=== PATIENT | female | born 1940 | race Caucasian/White ===

== ENCOUNTER 2018-02-18 03:24 | Inpatient (IN) | payer MEDICARE, OTHER ==
[2018-02-18 04:08] LABS: ADD MAN DIFF? NO
[2018-02-18 04:17] LABS: BASOPHIL # 0.1 10^3/ul (0.0-0.1); BASOPHILS % 0.3 % (0.0-2.0); EOSINOPHILS # 0.5 10^3/ul (0.0-0.5); EOSINOPHILS % 2.7 % (0.0-7.0); HEMATOCRIT 38.3 % (37.0-47.0); LYMPHOCYTES # 0.7 10^3/ul (0.8-2.9); LYMPHOCYTES % 3.8 % (15.0-51.0); MEAN CORPUSCULAR HEMOGLOBIN 31.4 pg (29.0-33.0); MEAN CORPUSCULAR HGB CONC 33.9 g/dl (32.0-37.0); MEAN CORPUSCULAR VOLUME 92.5 fl (82.0-101.0); MEAN PLATELET VOLUME 9.5 fl (7.4-10.4); MONOCYTE # 1.3 10^3/ul (0.3-0.9); MONOCYTES % 6.6 % (0.0-11.0); NEUTROPHIL # 16.7 10^3/ul (1.6-7.5); NEUTROPHILS % 85.7 % (39.0-77.0); PLATELET COUNT 250 10^3/UL (140-415); RED BLOOD COUNT 4.14 10^6/ul (4.20-5.40); RED CELL DISTRIBUTION WIDTH 11.6 % (11.5-14.5)
[2018-02-18 04:17] LABS: WHITE BLOOD COUNT 19.5 10^3/ul (4.8-10.8)
[2018-02-18 04:31] LABS: ALANINE AMINOTRANSFERASE 39 IU/L (13-69); ALBUMIN 3.9 g/dl (3.3-4.9); ALBUMIN/GLOBULIN RATIO 1.62; ALKALINE PHOSPHATASE 104 IU/L (42-121); ANION GAP 12 (8-16); ASPARTATE AMINO TRANSFERASE 44 IU/L (15-46); BILIRUBIN,INDIRECT 0.5 mg/dl (0-1.1); BILIRUBIN,TOTAL 0.5 mg/dl (0.2-1.3); BLOOD UREA NITROGEN 18 mg/dl (7-20); CALCIUM 9.2 mg/dl (8.4-10.2); CARBON DIOXIDE 30 mmol/L (21-31); CHLORIDE 103 mmol/L (97-110); CREATININE 0.92 mg/dl (0.44-1.00); GLUCOSE 123 mg/dl (70-220); POTASSIUM 3.7 mmol/L (3.5-5.1); SODIUM 141 mmol/L (135-144); TOTAL PROTEIN 6.3 g/dl (6.1-8.1)
[2018-02-18 04:33] LABS: URINE PH (Dip) POC 7.5 (5.0-8.5)
[2018-02-18 04:33] LABS: URINE BLOOD (Dip) POC Trace-intact (NEGATIVE); URINE GLUCOSE (Dip) POC Negative (NEGATIVE); URINE KETONES (Dip) POC Trace (NEGATIVE); URINE LEUKOCYTE EST (Dip) POC Negative (NEGATIVE); URINE NITRITE (Dip) POC Negative (NEGATIVE); URINE TOTAL PROTEIN POC Trace (NEGATIVE)
[2018-02-18 04:41] LABS: INR 0.91; PROTIME 12.3 Sec (11.9-14.9)
[2018-02-18 04:42] LABS: PARTIAL THROMBOPLASTIN TIME 44.1 Sec (25.0-35.0); TROPONIN-I 0.017 ng/ml (0.000-0.120)
[2018-02-18 04:44] LABS: ADD UMIC NO; UR ASCORBIC ACID NEGATIVE (NEGATIVE); UR BILIRUBIN (Dip) NEGATIVE (NEGATIVE); UR BLOOD (Dip) NEGATIVE (NEGATIVE); UR CLARITY CLEAR (CLEAR); UR COLOR YELLOW (YELLOW); UR GLUCOSE (Dip) NEGATIVE (NEGATIVE); UR KETONES (Dip) TRACE mg/dL (NEGATIVE); UR LEUKOCYTE ESTERASE (Dip) NEGATIVE Leu/ul (NEGATIVE); UR NITRITE (Dip) NEGATIVE (NEGATIVE); UR SPECIFIC GRAVITY (Dip) 1.014 (1.003-1.030); UR TOTAL PROTEIN (Dip) NEGATIVE (NEGATIVE); UR UROBILINOGEN (Dip) NEGATIVE (NEGATIVE)
[2018-02-18] MEDS: ACETAMINOPHEN 650 MG SUPP PR (05:08)
[2018-02-18 05:09] LABS: VALPROATE 49 ug/ml (50-100)
[2018-02-18] MEDS ORDERED: ACETAMINOPHEN 650 MG SUPP PR (05:30)
[2018-02-18] MEDS: LABETALOL HCL 20MG INJ IV (05:44)
[2018-02-18] MEDS: PANTOPRAZOLE 40 MG INJ IV (05:48)
[2018-02-18] MEDS: PIPER-TAZO 3.375 GM IV (PMX) 100 ML IVPB (05:48)
[2018-02-18 05:56] LABS: LACTIC ACID 0.9 mmol/L (0.5-2.0)
[2018-02-18] MEDS ORDERED: niCARdipine 25 MG in SOD CHLORIDE 0.9% 240 ML IV (06:00)
[2018-02-18] MEDS: SOD CHLORIDE 0.9% 1,000 ML IV ×3 (06:26→22:35)
[2018-02-18 07:05] LABS: ANION GAP 12 (8-16); BLOOD UREA NITROGEN 17 mg/dl (7-20); CALCIUM 8.9 mg/dl (8.4-10.2); CARBON DIOXIDE 29 mmol/L (21-31); CHLORIDE 104 mmol/L (97-110); CREATININE 0.85 mg/dl (0.44-1.00); GLUCOSE 123 mg/dl (70-220); POTASSIUM 3.6 mmol/L (3.5-5.1); SODIUM 141 mmol/L (135-144)
[2018-02-18 07:14] LABS: HEMOGLOBIN A1C 5.4 % (0-5.9)
[2018-02-18 08:01] LABS: LACTIC ACID 1.2 mmol/L (0.5-2.0)
[2018-02-18] MEDS: DOCUSATE SODIUM 100 MG CAP PO ×2 (08:35→21:21)
[2018-02-18] MEDS: ACETAMINOPHEN 650MG/20.3ML CUP PO (11:56)
[2018-02-18] MEDS ORDERED: DENOSUMAB 60 MG SQ (12:00)
[2018-02-18 13:02] LABS: CREATINE KINASE 173 IU/L (23-200)
[2018-02-18 13:12] LABS: CK INDEX 0.8; CK-MB 1.47 ng/ml (0.0-2.4); TROPONIN-I 0.015 ng/ml (0.000-0.120)
[2018-02-18 13:32] LABS: THYROID STIMULATING HORMONE 0.945 MIU/L (0.465-4.680)
[2018-02-18] MEDS: LOSARTAN 25 MG TAB PO (15:25)
[2018-02-18] MEDS: METOPROLOL (XL) 25 MG TAB PO (15:26)
[2018-02-18] MEDS: traMADol 50 MG TAB PO (15:49)
[2018-02-18] MEDS ORDERED: DIVALPROEX (EC) 500 MG TAB PO (16:00)
[2018-02-18] MEDS: [UNRECOGNIZED DRUG - REMARK] XX (17:25)
[2018-02-18 18:31] LABS: CREATINE KINASE 141 IU/L (23-200)
[2018-02-18 19:08] LABS: CK-MB 1.35 ng/ml (0.0-2.4)
[2018-02-18] MEDS: morphine 2 MG INJ IV (20:07)
[2018-02-18] MEDS ORDERED: NON-FORMULARY/PATIENT OWN MED (Divalproex Sodium* 500 MG) PO (21:00)
[2018-02-18] MEDS ORDERED: LACOSAMIDE 300 MG PO (21:00)
[2018-02-18] MEDS ORDERED: CALCIUM CITRATE 500 MG PO (21:00)
[2018-02-18] MEDS: LEVETIRACETAM 500 MG TAB PO (21:21)
[2018-02-18] MEDS: ATORVASTATIN 80 MG TAB PO (21:21)
[2018-02-18] MEDS: FAMOTIDINE 20 MG TAB PO (21:21)
[2018-02-18] MEDS: CALCIUM CARBONATE 500 MG CHEW TAB PO (21:21)
[2018-02-18] MEDS: DIVALPROEX (EC) 500 MG TAB PO (21:21)
[2018-02-18] MEDS: LACOSAMIDE (100 MG/10 ML PO SYR) PO (23:43)
[2018-02-19] MEDS: [UNRECOGNIZED DRUG - REMARK] XX ×3 (01:00→11:14)
[2018-02-19] MEDS: traMADol 50 MG TAB PO ×2 (01:22→10:26)
[2018-02-19] MEDS: morphine 2 MG INJ IV (03:16)
[2018-02-19 05:27] LABS: ADD MAN DIFF? NO
[2018-02-19 05:31] LABS: BASOPHILS % 0.2 % (0.0-2.0); EOSINOPHILS # 0.6 10^3/ul (0.0-0.5); HEMATOCRIT 31.3 % (37.0-47.0); HEMOGLOBIN 10.5 g/dl (12.0-16.0); IMMATURE GRANS #M 0.08 10^3/ul; IMMATURE GRANS % (M) 0.6 %; LYMPHOCYTES # 1.5 10^3/ul (0.8-2.9); LYMPHOCYTES % 12.5 % (15.0-51.0); MEAN CORPUSCULAR HEMOGLOBIN 31.3 pg (29.0-33.0); MEAN CORPUSCULAR HGB CONC 33.5 g/dl (32.0-37.0); MEAN CORPUSCULAR VOLUME 93.2 fl (82.0-101.0); MEAN PLATELET VOLUME 10.5 fl (7.4-10.4); MONOCYTE # 1.1 10^3/ul (0.3-0.9); MONOCYTES % 8.9 % (0.0-11.0); NEUTROPHILS % 72.8 % (39.0-77.0); PLATELET COUNT 228 10^3/UL (140-415); RED BLOOD COUNT 3.36 10^6/ul (4.20-5.40); RED CELL DISTRIBUTION WIDTH 11.8 % (11.5-14.5)
[2018-02-19 05:31] LABS: WHITE BLOOD COUNT 12.3 10^3/ul (4.8-10.8)
[2018-02-19 06:08] LABS: ANION GAP 9 (8-16); BLOOD UREA NITROGEN 12 mg/dl (7-20); CALCIUM 8.1 mg/dl (8.4-10.2); CARBON DIOXIDE 29 mmol/L (21-31); CHLORIDE 107 mmol/L (97-110); CHOL/HDL RATIO 2.8 RATIO; CHOLESTEROL 110 mg/dl (100-200); GLUCOSE 97 mg/dl (70-220); HDL CHOLESTEROL 38 mg/dl (33-92); LDL CHOLESTEROL,CALCULATED 54 mg/dl; POTASSIUM 4.5 mmol/L (3.5-5.1); SODIUM 140 mmol/L (135-144); TRIGLYCERIDES 91 mg/dl (0-149)
[2018-02-19] MEDS: LEVOTHYROXINE 50 MCG TAB PO (06:13)
[2018-02-19] MEDS: CALCIUM CARBONATE 500 MG CHEW TAB PO ×2 (08:50→21:00)
[2018-02-19] MEDS: METOPROLOL (XL) 25 MG TAB PO (08:50)
[2018-02-19] MEDS: LIOTHYRONINE 5 MCG TAB PO (08:50)
[2018-02-19] MEDS: LEVETIRACETAM 500 MG TAB PO ×2 (08:50→21:16)
[2018-02-19] MEDS: CHOLECALCIFEROL 1,000 UNIT TAB PO (08:50)
[2018-02-19] MEDS: DOCUSATE SODIUM 100 MG CAP PO ×2 (08:50→21:00)
[2018-02-19] MEDS: LOSARTAN 25 MG TAB PO (08:51)
[2018-02-19] MEDS: FLUDROCORTISONE 0.1 MG TAB PO (08:51)
[2018-02-19] MEDS: DIVALPROEX (EC) 500 MG TAB PO ×2 (08:51→21:16)
[2018-02-19] MEDS: CYANOCOBALAMIN 500 MCG TAB PO (08:51)
[2018-02-19] MEDS ORDERED: LOSARTAN 25 MG TAB PO (09:00)
[2018-02-19] MEDS ORDERED: METOPROLOL (XL) 25 MG TAB PO (09:00)
[2018-02-19] MEDS: LACOSAMIDE (100 MG/10 ML PO SYR) PO ×2 (10:20→21:16)
[2018-02-19] MEDS: ONDANSETRON 4 MG INJ IV (11:09)
[2018-02-19] MEDS: FAMOTIDINE 20 MG TAB PO (21:16)
[2018-02-19] MEDS: ATORVASTATIN 80 MG TAB PO (21:16)
[2018-02-20] MEDS: [UNRECOGNIZED DRUG - REMARK] XX ×3 (01:00→17:00)
[2018-02-20] MEDS: traMADol 50 MG TAB PO ×2 (03:17→20:58)
[2018-02-20] MEDS: SOD CHLORIDE 0.9% 1,000 ML IV ×2 (05:37→10:49)
[2018-02-20] MEDS: LEVOTHYROXINE 50 MCG TAB PO (06:44)
[2018-02-20] MEDS: DOCUSATE SODIUM 100 MG CAP PO ×2 (09:29→21:45)
[2018-02-20] MEDS: LOSARTAN 25 MG TAB PO (09:30)
[2018-02-20] MEDS: DIVALPROEX (EC) 500 MG TAB PO ×2 (09:30→21:45)
[2018-02-20] MEDS: LIOTHYRONINE 5 MCG TAB PO (09:30)
[2018-02-20] MEDS: LEVETIRACETAM 500 MG TAB PO ×2 (09:31→21:45)
[2018-02-20] MEDS: FLUDROCORTISONE 0.1 MG TAB PO (09:31)
[2018-02-20] MEDS: CALCIUM CARBONATE 500 MG CHEW TAB PO ×2 (09:32→21:00)
[2018-02-20] MEDS: METOPROLOL (XL) 25 MG TAB PO (09:32)
[2018-02-20] MEDS: LACOSAMIDE (100 MG/10 ML PO SYR) PO ×2 (09:33→21:46)
[2018-02-20] MEDS: CYANOCOBALAMIN 500 MCG TAB PO (09:33)
[2018-02-20] MEDS: CHOLECALCIFEROL 1,000 UNIT TAB PO (09:33)
[2018-02-20 10:02] LABS: ADD MAN DIFF? NO
[2018-02-20 10:09] LABS: WHITE BLOOD COUNT 10.3 10^3/ul (4.8-10.8)
[2018-02-20 10:09] LABS: BASOPHILS % 0.4 % (0.0-2.0); EOSINOPHILS # 0.7 10^3/ul (0.0-0.5); EOSINOPHILS % 6.3 % (0.0-7.0); HEMOGLOBIN 11.1 g/dl (12.0-16.0); IMMATURE GRANS #M 0.07 10^3/ul; IMMATURE GRANS % (M) 0.7 %; LYMPHOCYTES # 1.4 10^3/ul (0.8-2.9); LYMPHOCYTES % 13.8 % (15.0-51.0); MEAN CORPUSCULAR HEMOGLOBIN 31.8 pg (29.0-33.0); MEAN CORPUSCULAR HGB CONC 33.6 g/dl (32.0-37.0); MEAN CORPUSCULAR VOLUME 94.6 fl (82.0-101.0); MONOCYTE # 0.9 10^3/ul (0.3-0.9); MONOCYTES % 8.2 % (0.0-11.0); NEUTROPHIL # 7.3 10^3/ul (1.6-7.5); NEUTROPHILS % 70.6 % (39.0-77.0); PLATELET COUNT 256 10^3/UL (140-415); RED BLOOD COUNT 3.49 10^6/ul (4.20-5.40); RED CELL DISTRIBUTION WIDTH 11.6 % (11.5-14.5)
[2018-02-20 10:31] LABS: ANION GAP 12 (8-16); BLOOD UREA NITROGEN 11 mg/dl (7-20); CALCIUM 8.4 mg/dl (8.4-10.2); CARBON DIOXIDE 25 mmol/L (21-31); CHLORIDE 108 mmol/L (97-110); CREATININE 0.69 mg/dl (0.44-1.00); GLUCOSE 82 mg/dl (70-220); SODIUM 141 mmol/L (135-144)
[2018-02-20] MEDS: ACETAMINOPHEN 325 MG TAB PO (18:16)
[2018-02-20] MEDS: FAMOTIDINE 20 MG TAB PO (21:00)
[2018-02-20] MEDS: ATORVASTATIN 80 MG TAB PO (21:45)
[2018-02-21] MEDS: SOD CHLORIDE 0.9% 1,000 ML IV ×2 (00:06→02:08)
[2018-02-21] MEDS: [UNRECOGNIZED DRUG - REMARK] XX ×2 (00:07→09:00)
[2018-02-21] MEDS: hydrALAzine 20 MG INJ IV ×2 (02:43→15:10)
[2018-02-21] MEDS: ACETAMINOPHEN 325 MG TAB PO ×2 (03:40→21:40)
[2018-02-21 05:51] LABS: ADD MAN DIFF? NO
[2018-02-21 06:00] LABS: BASOPHILS % 0.4 % (0.0-2.0); EOSINOPHILS # 0.7 10^3/ul (0.0-0.5); HEMATOCRIT 32.3 % (37.0-47.0); IMMATURE GRANS #M 0.05 10^3/ul; IMMATURE GRANS % (M) 0.7 %; LYMPHOCYTES # 1.3 10^3/ul (0.8-2.9); MEAN CORPUSCULAR HEMOGLOBIN 31.4 pg (29.0-33.0); MEAN CORPUSCULAR HGB CONC 34.1 g/dl (32.0-37.0); MEAN CORPUSCULAR VOLUME 92.3 fl (82.0-101.0); MEAN PLATELET VOLUME 10.6 fl (7.4-10.4); MONOCYTE # 0.6 10^3/ul (0.3-0.9); MONOCYTES % 7.3 % (0.0-11.0); NEUTROPHILS % 65.6 % (39.0-77.0); PLATELET COUNT 264 10^3/UL (140-415); RED CELL DISTRIBUTION WIDTH 11.4 % (11.5-14.5)
[2018-02-21 06:00] LABS: WHITE BLOOD COUNT 7.7 10^3/ul (4.8-10.8)
[2018-02-21 06:34] LABS: ANION GAP 12 (8-16); BLOOD UREA NITROGEN 11 mg/dl (7-20); CALCIUM 8.5 mg/dl (8.4-10.2); CARBON DIOXIDE 24 mmol/L (21-31); CHLORIDE 110 mmol/L (97-110); CREATININE 0.61 mg/dl (0.44-1.00); GLUCOSE 85 mg/dl (70-220); POTASSIUM 3.3 mmol/L (3.5-5.1); SODIUM 143 mmol/L (135-144)
[2018-02-21] MEDS: LEVOTHYROXINE 50 MCG TAB PO (06:44)
[2018-02-21] MEDS: CALCIUM CARBONATE 500 MG CHEW TAB PO ×2 (09:00→21:00)
[2018-02-21] MEDS: DOCUSATE SODIUM 100 MG CAP PO ×2 (09:00→21:40)
[2018-02-21] MEDS: CYANOCOBALAMIN 500 MCG TAB PO (09:22)
[2018-02-21] MEDS: FLUDROCORTISONE 0.1 MG TAB PO (09:22)
[2018-02-21] MEDS: LEVETIRACETAM 500 MG TAB PO ×2 (09:22→21:40)
[2018-02-21] MEDS: CHOLECALCIFEROL 1,000 UNIT TAB PO (09:22)
[2018-02-21] MEDS: DIVALPROEX (EC) 500 MG TAB PO ×2 (09:22→21:40)
[2018-02-21] MEDS: LIOTHYRONINE 5 MCG TAB PO (09:23)
[2018-02-21] MEDS: LOSARTAN 25 MG TAB PO (09:23)
[2018-02-21] MEDS: METOPROLOL (XL) 25 MG TAB PO ×2 (09:24→11:56)
[2018-02-21] MEDS: LACOSAMIDE (100 MG/10 ML PO SYR) PO ×2 (09:28→21:40)
[2018-02-21] MEDS: POTASSIUM CHLORIDE 100 ML IVPB (11:55)
[2018-02-21] MEDS ORDERED: LOSARTAN 25 MG TAB PO (15:00)
[2018-02-21] MEDS: FAMOTIDINE 20 MG TAB PO (21:00)
[2018-02-21] MEDS: ATORVASTATIN 80 MG TAB PO (21:40)
[2018-02-22] MEDS: traMADol 50 MG TAB PO (04:19)
[2018-02-22] MEDS: LEVOTHYROXINE 50 MCG TAB PO (06:30)
[2018-02-22] MEDS: CALCIUM CARBONATE 500 MG CHEW TAB PO ×2 (09:00→21:00)
[2018-02-22] MEDS: DOCUSATE SODIUM 100 MG CAP PO ×2 (09:00→21:39)
[2018-02-22] MEDS: METOPROLOL (XL) 25 MG TAB PO (09:44)
[2018-02-22] MEDS: FLUDROCORTISONE 0.1 MG TAB PO (09:44)
[2018-02-22] MEDS: LIOTHYRONINE 5 MCG TAB PO (09:44)
[2018-02-22] MEDS: DIVALPROEX (EC) 500 MG TAB PO ×2 (09:44→21:39)
[2018-02-22] MEDS: CYANOCOBALAMIN 500 MCG TAB PO (09:44)
[2018-02-22] MEDS: LEVETIRACETAM 500 MG TAB PO ×2 (09:45→21:39)
[2018-02-22] MEDS: LACOSAMIDE (100 MG/10 ML PO SYR) PO ×2 (09:45→21:40)
[2018-02-22] MEDS: CHOLECALCIFEROL 1,000 UNIT TAB PO (09:45)
[2018-02-22] MEDS: LOSARTAN 25 MG TAB PO (09:45)
[2018-02-22] MEDS: FAMOTIDINE 20 MG TAB PO (21:00)
[2018-02-22] MEDS: ATORVASTATIN 80 MG TAB PO (21:39)
[2018-02-23] MEDS: LEVOTHYROXINE 50 MCG TAB PO (06:12)
[2018-02-23] MEDS: DIVALPROEX (EC) 500 MG TAB PO (09:17)
[2018-02-23] MEDS: CALCIUM CARBONATE 500 MG CHEW TAB PO ×2 (09:17→20:47)
[2018-02-23] MEDS: LEVETIRACETAM 500 MG TAB PO ×2 (09:17→20:47)
[2018-02-23] MEDS: FLUDROCORTISONE 0.1 MG TAB PO (09:17)
[2018-02-23] MEDS: LIOTHYRONINE 5 MCG TAB PO (09:17)
[2018-02-23] MEDS: DOCUSATE SODIUM 100 MG CAP PO ×2 (09:18→20:48)
[2018-02-23] MEDS: CHOLECALCIFEROL 1,000 UNIT TAB PO (09:18)
[2018-02-23] MEDS: METOPROLOL (XL) 25 MG TAB PO (09:19)
[2018-02-23] MEDS: LOSARTAN 25 MG TAB PO (09:19)
[2018-02-23] MEDS: CYANOCOBALAMIN 500 MCG TAB PO (09:24)
[2018-02-23] MEDS: LACOSAMIDE (100 MG/10 ML PO SYR) PO ×2 (10:45→21:45)
[2018-02-23] MEDS: ACETAMINOPHEN 325 MG TAB PO (15:21)
[2018-02-23] MEDS: POTASSIUM CHLORIDE 20 MEQ POWDER FOR ORAL SOLN PO (16:16)
[2018-02-23] MEDS: FAMOTIDINE 20 MG TAB PO (20:47)
[2018-02-23] MEDS: ATORVASTATIN 80 MG TAB PO (20:47)
[2018-02-23] MEDS: DIVALPROEX (EC) 250 MG TAB PO (20:50)
[2018-02-24] MEDS: traMADol 50 MG TAB PO ×2 (00:40→17:57)
[2018-02-24] MEDS: LEVOTHYROXINE 50 MCG TAB PO (06:17)
[2018-02-24] MEDS: LIOTHYRONINE 5 MCG TAB PO (08:45)
[2018-02-24] MEDS: LEVETIRACETAM 500 MG TAB PO ×2 (08:45→20:31)
[2018-02-24] MEDS: DIVALPROEX (EC) 250 MG TAB PO ×2 (08:45→20:31)
[2018-02-24] MEDS: CHOLECALCIFEROL 1,000 UNIT TAB PO (08:45)
[2018-02-24] MEDS: CYANOCOBALAMIN 500 MCG TAB PO (08:45)
[2018-02-24] MEDS: FLUDROCORTISONE 0.1 MG TAB PO (08:46)
[2018-02-24] MEDS: POTASSIUM CHLORIDE 20 MEQ POWDER FOR ORAL SOLN PO (08:46)
[2018-02-24] MEDS: METOPROLOL (XL) 25 MG TAB PO (08:46)
[2018-02-24] MEDS: DOCUSATE SODIUM 100 MG CAP PO ×2 (08:47→20:30)
[2018-02-24] MEDS: LOSARTAN 25 MG TAB PO (08:47)
[2018-02-24] MEDS: CALCIUM CARBONATE 500 MG CHEW TAB PO ×2 (08:47→20:30)
[2018-02-24] MEDS: LACOSAMIDE (100 MG/10 ML PO SYR) PO ×2 (10:40→20:38)
[2018-02-24] MEDS ORDERED: morphine LIQ (10 MG/5 ML) CUP PO (16:00)
[2018-02-24] MEDS: ATORVASTATIN 80 MG TAB PO (20:31)
[2018-02-24] MEDS: FAMOTIDINE 20 MG TAB PO (20:31)
[2018-02-25] MEDS: LEVOTHYROXINE 50 MCG TAB PO (06:53)
[2018-02-25] MEDS: LOSARTAN 25 MG TAB PO (09:00)
[2018-02-25] MEDS: METOPROLOL (XL) 25 MG TAB PO (09:00)
[2018-02-25] MEDS: CYANOCOBALAMIN 500 MCG TAB PO (09:06)
[2018-02-25] MEDS: FLUDROCORTISONE 0.1 MG TAB PO (09:06)
[2018-02-25] MEDS: LIOTHYRONINE 5 MCG TAB PO (09:06)
[2018-02-25] MEDS: LACOSAMIDE (100 MG/10 ML PO SYR) PO ×2 (09:06→22:02)
[2018-02-25] MEDS: LEVETIRACETAM 500 MG TAB PO ×2 (09:06→22:01)
[2018-02-25] MEDS: DOCUSATE SODIUM 100 MG CAP PO ×2 (09:07→22:01)
[2018-02-25] MEDS: DIVALPROEX (EC) 250 MG TAB PO ×2 (09:07→22:01)
[2018-02-25] MEDS: CALCIUM CARBONATE 500 MG CHEW TAB PO ×2 (09:07→21:00)
[2018-02-25] MEDS: CHOLECALCIFEROL 1,000 UNIT TAB PO (09:07)
[2018-02-25] MEDS: POTASSIUM CHLORIDE 20 MEQ POWDER FOR ORAL SOLN PO (09:08)
[2018-02-25] MEDS: ATORVASTATIN 80 MG TAB PO (22:01)
[2018-02-26] MEDS: LEVOTHYROXINE 50 MCG TAB PO (06:31)
[2018-02-26] MEDS: PANTOPRAZOLE (EC) 40 MG TAB PO (06:31)
[2018-02-26] MEDS: CALCIUM CARBONATE 500 MG CHEW TAB PO (09:00)
[2018-02-26] MEDS: LEVETIRACETAM 500 MG TAB PO (09:56)
[2018-02-26] MEDS: DOCUSATE SODIUM 100 MG CAP PO (09:56)
[2018-02-26] MEDS: DIVALPROEX (EC) 250 MG TAB PO (09:57)
[2018-02-26] MEDS: POTASSIUM CHLORIDE 20 MEQ POWDER FOR ORAL SOLN PO (09:57)
[2018-02-26] MEDS: CYANOCOBALAMIN 500 MCG TAB PO (09:57)
[2018-02-26] MEDS: METOPROLOL (XL) 25 MG TAB PO (09:58)
[2018-02-26] MEDS: LOSARTAN 25 MG TAB PO (09:59)
[2018-02-26] MEDS: LIOTHYRONINE 5 MCG TAB PO (09:59)
[2018-02-26] MEDS: CHOLECALCIFEROL 1,000 UNIT TAB PO (09:59)
[2018-02-26] MEDS: SERTRALINE 100 MG TAB PO (09:59)
[2018-02-26] MEDS: LACOSAMIDE (100 MG/10 ML PO SYR) PO (10:00)
== END 2018-02-26 17:00 | DRG 85 ==
LOC: E/R 03:24 → MS1 02-21 18:59 → ICU 05:33
DX: S06.5X0A Traumatic subdural hemorrhage without loss of consciousness, initial encounter (principal); G93.49 Other encephalopathy; I16.1 Hypertensive emergency; R65.10 Systemic inflammatory response syndrome (SIRS) of non-infectious origin without acute organ dysfunction; G40.909 Epilepsy, unspecified, not intractable, without status epilepticus; S06.6X0A Traumatic subarachnoid hemorrhage without loss of consciousness, initial encounter; I10 Essential (primary) hypertension; E03.9 Hypothyroidism, unspecified; E78.5 Hyperlipidemia, unspecified; F32.9 Major depressive disorder, single episode, unspecified; I25.10 Atherosclerotic heart disease of native coronary artery without angina pectoris; F03.90 Unspecified dementia, unspecified severity, without behavioral disturbance, psychotic disturbance, mood disturbance, and anxiety; E87.6 Hypokalemia; K80.20 Calculus of gallbladder without cholecystitis without obstruction; I25.2 Old myocardial infarction; I73.9 Peripheral vascular disease, unspecified; J30.9 Allergic rhinitis, unspecified; W18.39XA Other fall on same level, initial encounter; Y92.092 Bedroom in other non-institutional residence as the place of occurrence of the external cause; Z91.81 History of falling
CPT/HCPCS: 36415; 70450; 70551; 71045; 72131; 73700; 74176; 80048; 80053; 80061; 80164; 81003; 82550; 82553; 82962; 83036; 83605; 84443; 84484; 85025; 85610; 85730; 87040; 87086; 92526; 92610; 93005; 93306; 93880; 95819; 97116; 97162; 97530; 99291-25